=== PATIENT | male | born 2005 | race Two or more races ===

== ENCOUNTER 2025-01-28 16:40 | Emergency (ER) | payer MEDICAID, OTHER ==
[~2025-01-28] VITALS: Ht 175.3 cm; Wt 76.9 kg
--- NOTE | 2025-01-28 17:36 | ED.PDOC ---
Musculoskeletal HPI Comments 19 y.o male presents to the ED for a chief complaint of right ankle pain associated with lateral outer ecchymosis s/p sporting accident 2 days ago. Patient was playing basketball and another player landed right onto his right ankle, causing immediate pain. Patient placed ankle in a brace, is able to bear some weight to foot but does report pain with stepping. Patient denies any deformities, open wound fractures, or numbness to extremity. Chief Complaint: Lower Extremity Time Seen by MD: 17:28 Primary Care Provider: NONE Reviewed Notes: Nurses Notes, Medications, Allergies Allergies: Coded Allergies: NO KNOWN ALLERGIES (Unverified , 01/28/25) Information Source: Patient Mode of Arrival: Ambulatory Location: Right Extremity Location: Ankle Timing: Days (2) Severity: Moderate Able to Move Extremity: Yes Bear Weight: Limited Pain: Moderate Mechanism: None Circumstances: Sporting, Playing Onset of Symptoms: After Trauma Symptoms: Swelling, Pain DVT Risk Factors: NONE Associated signs and symptoms: Swelling, Ankle pain Past Medical History PAST MEDICAL HISTORY: Denies Surgical History: Denies all surgeries Family History Family History: Reviewed,noncontributory to illness Social History Smoker: Non-Smoker Alcohol: Denies ETOH Use Drugs: Denies Drug Use Lives In: Home Constitutional: denies: chills, diaphoresis, fatigue, fever, malaise, sweats, weakness, others EENTM: denies: blurred vision, double vision, ear bleeding, ear discharge, ear drainage, ear pain, ear ringing, eye pain, eye redness, hearing loss, mouth pain, mouth swelling, nasal discharge, nose bleeding, nose congestion, nose pain, photophobia, tearing, throat pain, throat swelling, voice changes, others Respiratory: denies: cough, hemoptysis, orthopnea, SOB at rest, shortness of breath, SOB with excertion, stridor, wheezing, others Cardiovascular: denies: chest pain, dizzy spells, diaphoresis, Dyspnea on exertion, edema, irregular heart beat, left arm pain, lightheadedness, palpitations, PND, syncope, others Gastrointestinal: denies: abdomen distended, abdominal pain, blood streaked bowels, constipated, diarrhea, dysphagia, difficulty swallowing, hematemesis, me abisai, nausea, poor appetite, poor fluid intake, rectal bleeding, rectal pain, vomiting, others Genitourinary: denies: burning, dysuria, flank pain, frequency, hematuria, incontinence, penile discharge, penile sore, pain, testicle pain, testicle swelling, urgency, others Neurological: denies: dizziness, fainting, headache, left sided numbness, left sided weakness, numbness, paresthesia, pre-existing deficit, right sided numbness, right sided weakness, seizure, speech problems, tingling, tremors, weakness, others Musculoskeletal: reports: others (right ankle pain ); denies: back pain, gout, joint pain, joint swelling, muscle pain, muscle stiffness, neck pain Integumetry: reports: bruises (right ankle ); denies: change in color, change in hair/nails, dryness, laceration, lesions, lumps, rash, wounds, others Allergic/Immunocompromised: denies: Difficulty Healing, Frequent Infections, Hives, Itching, others Hematologic/Lymphatic: denies: anemia, blood clots, easy bleeding, easy bruising, swollen glands, others Endocrine: denies: excessive hunger, excessive sweating, excessive thirst, excessive urination, flushing, intolerance to cold, intolerance to heat, unexplained weight gain, unexplained weight loss, others Psychiatric: denies: anxiety, bipolar disorder, depression, hopeless, panic disorder, schizophrenia, sleepless, suicidal, others All Other Systems: Reviewed and Negative Physical Exam General Appearance: No Apparent Distress, Normal HEENT: Normal ENT Inspection, Pharynx Normal, TMs Normal Neck: Full Range of Motion, Non-Tender, Normal, Normal Inspection Respiratory: Chest Non-Tender, Lungs Clear, No Accessory Muscle Use, No Respiratory Distress, Normal Breath Sounds Cardiovascular: No Edema, No JVD, No Murmur, No Gallop, Normal Peripheral Pulses, Regular Rate/Rhythm Breast Exam: Deferred Gastrointestinal: No Organomegaly, Non Tender, No Pulsatile Mass, Normal Bowel Sounds, Soft Genitalia: Deferred Pelvic: Deferred Rectal: Deferred Extremities: No calf tenderness, Normal capillary refill, Normal inspection, Normal range of motion, Non-tender, No pedal edema Musculoskeletal : Location: Right Extremity Location: Ankle Apperance: Tenderness: Moderate Neurologic: Alert, molder offbearer II-XII nml as Tested, No Motor Deficits, Normal Affect, Normal Mood, No Sensory Deficits Cerebellar Function: Normal Reflexes: Normal Skin: Bruises (right lateral outer right ankle ) Lymphatic: No Adenopathy Was a procedure done? Was a procedure done?: Yes Sedation Sedation?: No Other Procedure Procedure right stirrup and post short leg splint placed properly with intact neurovascular functions Differential Diagnosis EXT Differential Diagnosis: Fracture, Sprain, Dislocation, Contusion, Strain, Arthritis X-Ray, Labs, Meds, VS Vital Signs Date Time Temp Pulse Resp B/P (MAP) Pulse Ox O2 Delivery O2 Flow Rate FiO2 01/28/25 16:48 99.5 70 15 125/75 (92) 100 99.5 Time of 1ST Reevaluation: 17:30 Reevaluation 1ST: Unchanged Time of 2ND Reevaluation: 19:03 Reevaluation 2ND: Improved Patient Education/Counseling: Diagnosis, Treatment, Prognosis, Need For Follow Up Family Education/Counseling: No Family Present Additional Information Previous visit: None The following tests were ordered, and results were reviewed by me: Right ankle X ray Additional Information was gathered from interviewing the following independent historians: None I reviewed and agreed with the following test results read by other providers: Right ankle X ray I discussed treatment and results with medical personnel and: Patient Comprehensive systems review obtained and negative except for what is stated in the HPI. pt has no fractures or dislocations on the xray. he has a sprain and will need splinting and crutches. he is stable to follow up with his doctor Departure 1 Departure Time of Disposition: 19:01 Impression: Primary Impression: Right ankle sprain Qualified Codes: S93.401A - Sprain of unspecified ligament of right ankle, initial encounter Disposition: HOME / SELF CARE / HOMELESS Condition: Good Additional Instructions: elevate, cold compress 15minb, hour while awake for 24 hours. rest. follow up with your doctor in 3 days e-Prescriptions Ibuprofen Micronized (MOTRIN TABLET) 600 Mg Tb 600 MG PO TID PRN, #40 TAB *Black box warning-NSAIDS can increase risk of [place] & hypertension, GI irritation, ulceration, bleed, perferation. Do not use post cardiac surgery. Use short duration/lowest effective dose. Prov: JENS RIVERA MD 01/28/25 Discharged With: Self Critical Care Note Critical Care Time?: No Stability Stability form required: No I personally scribed for JENS RIVERA MD ([email or web address]) on 01/28/25 at 17:36. Electronically submitted by Elizabeth Lopez ([facility]). JENS RIVERA MD Jan 28, 2025 17:36
--- NOTE | 2025-01-28 18:40 | DVH ---
EXAM: XY R ANKLE 3 VIEW CLINICAL HISTORY: injury COMPARISON: None TECHNIQUE: XY R ANKLE 3 VIEW Findings/Impression: 3 views of the right ankle. There is no evidence of an acute fracture, dislocation, blastic, or lytic lesions. No radiopaque foreign bodies. Small joint effusion with mild soft tissue edema.
[2025-01-28] MEDS ORDERED: IBU600T PO (19:02)
[2025-01-28 19:51] VITALS: BP 132/82; PULSE 61; RESP 17; TEMP 98.2; O2SAT 98
== END 2025-01-28 20:27 | disposition home or self-care (01) ==
LOC: ER 16:40
DX: S93.401A Sprain of unspecified ligament of right ankle, initial encounter (principal); X58.XXXA Exposure to other specified factors, initial encounter; Y93.67 Activity, basketball; Y92.89 Other specified places as the place of occurrence of the external cause; Y99.8 Other external cause status
CPT/HCPCS: 29515; 73610